=== PATIENT | female | born 2000 | race Two or more races ===

== ENCOUNTER 2019-10-01 17:38 | Emergency (ER) | payer BC ==
[~2019-10-01] VITALS: Ht 167.6 cm; Wt 81.6 kg
--- NOTE | 2019-10-01 18:00 | NUR ---
Patient came in to the er c/o fever x 8 days. On room air, breathing evenly and unlabored. connected to the monitor and pulse ox. kept comfortable, will continue to monitor accordingly.
[2019-10-01] MEDS ORDERED: IV NS 0.9% 1,000 ML BAG IV ONE (18:30)
[2019-10-01 18:36] LABS: BASOPHILS % (AUTO) 1.1 % (0.0-2.0); EOSINOPHILS % (AUTO) 0.2 % (0.0-6.0); HEMATOCRIT 23 % (33-45); HEMOGLOBIN 7.7 g/dL (11.5-14.8); LYMPHOCYTES # (AUTO) 2.2 /CMM (0.8-4.8); MEAN CORPUSCULAR HGB CONC 34 g/dl (31.0-36.0); MEAN CORPUSCULAR VOLUME 80 fL (82-100); MONOCYTES # (AUTO) 0.7 /CMM (0.1-1.30); NEUTROPHILS # (AUTO) 1.7 /CMM (1.8-8.9); NEUTROPHILS % (AUTO) 36.7 % (43.0-81.0); PLATELET COUNT (AUTO) 146 /CMM (150-450); WHITE BLOOD COUNT (AUTO) 4.6 K/uL (4.3-11.0)
[2019-10-01 18:38] LABS: APPEARANCE,URINE Clear (CLEAR); BILIRUBIN,URINE SMALL (NEGATIVE); BLOOD, URINE Negative Ery/uL (NEGATIVE); COLOR,URINE Yellow (YELLOW); KETONES,URINE Negative (NEGATIVE); LEUKOCYTE ESTERASE ,URINE Negative (NEGATIVE); NITRITE, URINE Negative (NEGATIVE); PH,URINE 5.5 (5.0-8.0); PROTEIN,URINE Trace mg/dl (NEGATIVE); UGLUCOSE Negative (NEGATIVE)
[2019-10-01 18:44] LABS: CALCIUM, SERUM 9.1 mg/dL (8.5-10.1); CREATININE 0.8 mg/dL (0.6-1.3); POTASSIUM 3.8 mmol/L (3.5-5.1)
[2019-10-01 18:50] LABS: ALBUMIN 3.7 g/dL (3.4-5.0); BILIRUBIN,DIRECT 0.3 mg/dL (0.0-0.2); BILIRUBIN,TOTAL 1.7 mg/dL (0.2-1.0); TOTAL PROTEIN, SERUM 7.2 g/dL (6.4-8.2)
[2019-10-01 19:05] LABS: RBC,URINE 0-2 /HPF (0-2)
[2019-10-01 19:06] LABS: BACTERIA,URINE Few /HPF (None Seen); MUCUS,URINE Few /LPF (None Seen); SQUAMOUS EPITHELIAL CELL,UR Few /HPF (None Seen); URINE AMORPHOUS URATE Few /HPF (None Seen); WBC,URINE 2-4/HPF /HPF (0-3)
[2019-10-01 19:14] LABS: LYMPHOCYTES % (MANUAL) 48 % (16-48); MONOCYTES % (MANUAL) 8 % (0-11.0); NEUTROPHILS % (MANUAL) 37 (42-76); REACTIVE LYMPHOCYTES 7 % (0-0)
--- NOTE | 2019-10-01 19:18 | NUR ---
report given to Isabel GARCIA for dorinda
--- NOTE | 2019-10-01 20:19 | NUR ---
Patient discharged to home in stable condition. Written and verbal after care instructions given. Patient verbalizes understanding of instruction.
[2019-10-01 20:20] VITALS: BP 107/75
== END 2019-10-01 20:20 | disposition home or self-care (01) ==
LOC: ER 17:38
DX: R50.9 Fever, unspecified (principal); D58.9 Hereditary hemolytic anemia, unspecified; F14.10 Cocaine abuse, uncomplicated; F12.10 Cannabis abuse, uncomplicated; R01.1 Cardiac murmur, unspecified; Z88.6 Allergy status to analgesic agent; Z88.8 Allergy status to other drugs, medicaments and biological substances
CPT/HCPCS: 36415; 71045; 80048; 80076; 81001; 83605; 84703; 85025; 85730; 87040 ×2; 99284; J7030; 81000-TC

== ENCOUNTER 2019-10-07 19:04 | Emergency (ER) | payer BC ==
[~2019-10-07] VITALS: Ht 167.6 cm; Wt 78.9 kg
[2019-10-07 19:36] VITALS: BP 138/62
--- NOTE | 2019-10-07 20:00 | NUR ---
Gonsalo woodruff in [facility] - 10/07/19 at 2002 by EBONIE 200 GIVEN
== END 2019-10-07 20:12 | disposition home or self-care (01) ==
LOC: ER 19:06
DX: R50.9 Fever, unspecified (principal); M89.8X9 Other specified disorders of bone, unspecified site; R51 Headache; F41.9 Anxiety disorder, unspecified; R01.1 Cardiac murmur, unspecified; F43.10 Post-traumatic stress disorder, unspecified; F12.10 Cannabis abuse, uncomplicated; Z88.6 Allergy status to analgesic agent; Z88.8 Allergy status to other drugs, medicaments and biological substances

== ENCOUNTER 2020-06-11 19:06 | Emergency (ER) | payer BC ==
[~2020-06-11] VITALS: Ht 167.6 cm; Wt 79.4 kg
--- NOTE | 2020-06-11 19:35 | NUR ---
PT CAME TO THE ED C/O DEPRESSION. PT DENIES SI OR HI. PT ENDORSES CHILLS AND NAUSEA. PT AAOX4, VSS, RESPIRATIONS EVEN AND UNLABORED ON RA W/ NAD NOTED. PT CONNECTED TO THE MONITOR AND POX
[2020-06-11 19:56] LABS: APPEARANCE,URINE Clear (CLEAR); BILIRUBIN,URINE SMALL (NEGATIVE); BLOOD, URINE Moderate Ery/uL (NEGATIVE); COLOR,URINE Dark (YELLOW); KETONES,URINE Trace (NEGATIVE); LEUKOCYTE ESTERASE ,URINE Negative (NEGATIVE); NITRITE, URINE Negative (NEGATIVE); PH,URINE 5.5 (5.0-8.0); PROTEIN,URINE 100 mg/dl (NEGATIVE); UGLUCOSE Negative (NEGATIVE); UROBILINOGEN,URINE 0.2 EU/dL (0.2)
[2020-06-11 20:03] LABS: RBC,URINE 21-50 /HPF (0-2)
[2020-06-11 20:04] LABS: BACTERIA,URINE Few /HPF (None Seen); SQUAMOUS EPITHELIAL CELL,UR Few /HPF (None Seen)
[2020-06-11 20:05] LABS: BASOPHILS % (AUTO) 1.4 % (0.0-2.0); EOSINOPHILS % (AUTO) 0.4 % (0.0-6.0); HEMATOCRIT 24 % (33-45); HEMOGLOBIN 7.8 g/dL (11.5-14.8); LYMPHOCYTES # (AUTO) 1.2 /CMM (0.8-4.8); LYMPHOCYTES % (AUTO) 40.7 % (20.0-44.0); MEAN CORPUSCULAR HGB CONC 33 g/dl (31.0-36.0); MEAN CORPUSCULAR VOLUME 68 fL (82-100); MONOCYTES # (AUTO) 0.5 /CMM (0.1-1.30); NEUTROPHILS # (AUTO) 1.2 /CMM (1.8-8.9); NEUTROPHILS % (AUTO) 40.5 % (43.0-81.0); PLATELET COUNT (AUTO) 134 /CMM (150-450)
[2020-06-11 20:20] LABS: ALANINE AMINOTRANSFERASE 29 U/L (12-78); ALBUMIN 3.9 g/dL (3.4-5.0); ALCOHOL, BLOOD < 3 mg/dL (0-0); ALKALINE PHOSPHATASE 88 U/L (46-116); ASPARTATE AMINOTRANSFERASE 50 U/L (15-37); BILIRUBIN,DIRECT 0.3 mg/dL (0.0-0.2); BILIRUBIN,TOTAL 1.6 mg/dL (0.2-1.0); CALCIUM, SERUM 9.4 mg/dL (8.5-10.1); CARBON DIOXIDE 21 mmol/L (21-32); CHLORIDE 106 mmol/L (98-107); CREATININE 0.8 mg/dL (0.6-1.3); GLUCOSE 105 mg/dL (74-106); POTASSIUM 4.1 mmol/L (3.5-5.1); SODIUM SERUM 138 mmol/L (136-145); TOTAL PROTEIN, SERUM 7.9 g/dL (6.4-8.2); UREA NITROGEN, BLOOD 13 mg/dL (7-18)
[2020-06-11 20:21] LABS: SALICYLATE 2.3 mg/dL (2.8-20.0)
[2020-06-11 20:22] LABS: ACETAMINOPHEN < 2 ug/ml (10-30)
[2020-06-11] MEDS ORDERED: ACETAMINOPHEN 325 MG TABLET PO ONE (20:30)
[2020-06-11 21:14] LABS: EOSINOPHILS % (MANUAL) 1 % (0-4); LYMPHOCYTES % (MANUAL) 53 % (16-48); MONOCYTES % (MANUAL) 13 % (0-11.0); NEUTROPHILS % (MANUAL) 33 (42-76)
[2020-06-11] MEDS ORDERED: ACETAMINOPHEN 325 MG TABLET ONE (21:24)
[2020-06-11] MEDS ORDERED: IV NS 0.9% 1,000 ML BAG IV ONE (22:00)
--- NOTE | 2020-06-12 00:34 | NUR ---
PT RESTING CONMFORTABLY IN BED. NAD NOTED. PT CONNECTED TO THE MONITOR AND POX. SITTER AT BEDSIDE FOR SAFETY
--- NOTE | 2020-06-12 03:27 | NUR ---
PT RESTING COMFORTABLY IN BED. NAD NOTED. PT CONNECTED TO THE MONITOR AND POX. SITTER AT BEDSIDE FOR SAFETY
--- NOTE | 2020-06-12 06:00 | NUR ---
PT DENIES SI/HI. PT STATES SHE FEELS BETTER AND WANTS TO GO HOME.
[2020-06-12 06:29] VITALS: BP 124/89
--- NOTE | 2020-06-12 06:29 | NUR ---
Patient discharged to home in stable condition. Written and verbal after care instructions given. Patient verbalizes understanding of instruction. Pt ambulatory w/ steady gait.
== END 2020-06-12 06:30 | disposition home or self-care (01) ==
LOC: ER 19:10
DX: F32.9 Major depressive disorder, single episode, unspecified (principal); D58.9 Hereditary hemolytic anemia, unspecified; M79.642 Pain in left hand; M79.641 Pain in right hand; M25.532 Pain in left wrist; M25.531 Pain in right wrist; R42 Dizziness and giddiness; F84.0 Autistic disorder; F43.10 Post-traumatic stress disorder, unspecified; F41.0 Panic disorder [episodic paroxysmal anxiety]; Z88.6 Allergy status to analgesic agent; Z88.8 Allergy status to other drugs, medicaments and biological substances
CPT/HCPCS: 36415; 73110; 73130 ×2; 80048; 80076; 80305; 80307; 80329; 81001; 84703; 85025; 96360; 99284; G0480; J7030; 81000-TC

== ENCOUNTER 2020-06-27 17:52 | Emergency (ER) | payer BC ==
[~2020-06-27] VITALS: Ht 167.6 cm; Wt 68.0 kg
[2020-06-27 17:55] VITALS: BP 141/61
--- NOTE | 2020-06-27 18:00 | NUR ---
patient came in due to abrasion on the left leg from a fall yesterday. On room air, breathing evenly and unlabored. connected to the monitor and pulse ox. kept comfortable, will continue to monitor accordingly.
--- NOTE | 2020-06-27 18:12 | NUR ---
Patient discharged to home in stable condition. Written and verbal after care instructions given. Patient verbalizes understanding of instruction.
== END 2020-06-27 18:12 | disposition home or self-care (01) ==
LOC: ER 17:55
DX: S80.812A Abrasion, left lower leg, initial encounter (principal); S80.811A Abrasion, right lower leg, initial encounter; S40.812A Abrasion of left upper arm, initial encounter; S40.811A Abrasion of right upper arm, initial encounter; J45.909 Unspecified asthma, uncomplicated; F43.10 Post-traumatic stress disorder, unspecified; F41.0 Panic disorder [episodic paroxysmal anxiety]; F12.90 Cannabis use, unspecified, uncomplicated; D58.9 Hereditary hemolytic anemia, unspecified; Z88.6 Allergy status to analgesic agent; Z88.8 Allergy status to other drugs, medicaments and biological substances; W01.0XXA Fall on same level from slipping, tripping and stumbling without subsequent striking against object, initial encounter; Y93.01 Activity, walking, marching and hiking; Y92.89 Other specified places as the place of occurrence of the external cause; Y99.8 Other external cause status

== ENCOUNTER 2020-06-27 19:02 | Emergency (ER) | payer BC ==
[~2020-06-27] VITALS: Ht 167.6 cm; Wt 68.0 kg
[2020-06-27 19:25] VITALS: BP 142/80
[2020-06-27 19:52] LABS: BASOPHILS % (AUTO) 1.3 % (0.0-2.0); EOSINOPHILS % (AUTO) 0.6 % (0.0-6.0); HEMATOCRIT 23 % (33-45); HEMOGLOBIN 7.5 g/dL (11.5-14.8); LYMPHOCYTES # (AUTO) 1.1 /CMM (0.8-4.8); MEAN CORPUSCULAR HGB CONC 33 g/dl (31.0-36.0); MEAN CORPUSCULAR VOLUME 70 fL (82-100); MONOCYTES # (AUTO) 0.4 /CMM (0.1-1.30); MONOCYTES % (AUTO) 15.7 % (2.0-12.0); NEUTROPHILS # (AUTO) 1.2 /CMM (1.8-8.9); NEUTROPHILS % (AUTO) 43.4 % (43.0-81.0); PLATELET COUNT (AUTO) 118 /CMM (150-450); WHITE BLOOD COUNT (AUTO) 2.8 K/uL (4.3-11.0)
--- NOTE | 2020-06-27 20:17 | NUR ---
Gonsalo woodruff in [facility] - 06/27/20 at 2018 by MUSTAPHA dc
--- NOTE | 2020-06-27 20:17 | NUR ---
Patient discharged to home in stable condition. Written and verbal after care instructions given. Patient verbalizes understanding of instruction.
--- NOTE | 2020-06-27 20:17 | NUR ---
Patient is provided with toxicology screening report.
[2020-06-27 21:54] LABS: EOSINOPHILS % (MANUAL) 2 % (0-4); LYMPHOCYTES % (MANUAL) 40 % (16-48); MONOCYTES % (MANUAL) 11 % (0-11.0); NEUTROPHILS % (MANUAL) 47 (42-76)
== END 2020-06-27 20:19 | disposition home or self-care (01) ==
LOC: ER 19:05
DX: D64.9 Anemia, unspecified (principal); J45.909 Unspecified asthma, uncomplicated; F43.10 Post-traumatic stress disorder, unspecified; F41.0 Panic disorder [episodic paroxysmal anxiety]; F84.0 Autistic disorder; Z88.6 Allergy status to analgesic agent; Z88.8 Allergy status to other drugs, medicaments and biological substances
CPT/HCPCS: 36415; 80305; 85025-TC